=== PATIENT | male | born 1950 ===

== ENCOUNTER 2017-02-01 11:04 | Emergency (ER) | payer MEDICARE ==
[2017-02-01 11:18] VITALS: TEMP 98
--- NOTE | 2017-02-01 11:22 | C.PDOC ---
History Of Present Illness <Idalia Talbot - Last Filed: 02/01/17 11:36> <Michelle Perdue - Last Filed: 02/01/17 13:04> 66 year old male with PMHx of HTN and shingles presents with complaint of worsening shingle pain. Shingles outbreak started on December 20 on his left chest. He was treated with Acyclovir, Percocet, and Gabapentin. The patient was unable to tolerate the Gabapentin because it caused vomiting. He states that he is only taking Tylenol 2 tabs q4h for the pain but that it is not helping. Pain became worse last night and kept him up all night. Denies new vesicles. All other ROS negative at this time. (IronMichelle) <Idalia Talbot - Last Filed: 02/01/17 11:36> History Per: Patient History/Exam Limitations: no limitations Onset/Duration Of Symptoms: Days Current Symptoms Are (Timing): Still Present Quality Of Symptoms: Painful Severity: Severe Pain Scale Rating Of: 10 Recent travel outside of the [place]: Yes ([place]) Additional History Per: Patient <Michelle Perdue - Last Filed: 02/01/17 13:04> Time Seen by Provider: 02/01/17 11:10 Chief Complaint (Nursing): Abnormal Skin Integrity Past Medical History - Medical History PMH: HTN Other PMH: shingles Surgical History: Appendectomy, Cholecystectomy Family History: States: Unknown Family Hx - Social History Hx Tobacco Use: No Hx Alcohol Use: Yes Hx Substance Use: No - Immunization History Hx Tetanus Toxoid Vaccination: No Hx Influenza Vaccination: No Hx Pneumococcal Vaccination: No <Michelle Perdue - Last Filed: 02/01/17 13:04> Vital Signs: Last Vital Signs Temp 98.0 F 02/01/17 11:15 Pulse 75 02/01/17 12:13 Resp 18 02/01/17 12:13 BP 128/92 H 02/01/17 12:13 Pulse Ox 98 02/01/17 12:13 Review Of Systems Except As Marked, All Systems Reviewed And Found Negative. Skin: Positive for: Rash, Other (healing shingles, chronic skin discoloration and changes ) <Terry Perdueiba - Last Filed: 02/01/17 13:04> Physical Exam - Physical Exam Appears: Well, Non-toxic Skin: Rash (left chest healed shingles, mottled purple, painful with light touch ) <IronMichelle - Last Filed: 02/01/17 13:04> ED Course And Treatment O2 Sat by Pulse Oximetry: 97 <Michelle Perdue - Last Filed: 02/01/17 13:04> Supervising Attending Note - Supervising Attending Note Comment: RESIDENT - Attestation: I have personally seen and examined this patient.: Yes I have fully participated in the care of the patient.: Yes I have reviewed all pertinent clinical information, including history, physical exam and plan: Yes <Idalia Talbot - Last Filed: 02/01/17 11:36> <IronMichelle - Last Filed: 02/01/17 13:04> - Notes: Notes:: PERSIST PAIN OVER SHINGLES SITE X 1 MO. RELIEF W PERCOCET AND TYLENOL BUT PAIN RECURS. RASH HEALING WELL, NO OTHER ASSOC SX. EXAM ABOVE LIDODERM PATCH, CONT CURRENT MEDS NEEDED (Idalia Talbot) Disposition Counseled Patient/Family Regarding: Diagnosis, Need For Followup - Disposition Disposition Time: 11:37 <Idalia Talbot - Last Filed: 02/01/17 11:36> Discussed With .: Idalia Talbot Counseled Patient/Family Regarding: Diagnosis, Need For Followup, Rx Given - Disposition Disposition Time: 11:33 <IronMichelle - Last Filed: 02/01/17 13:04> - Disposition Referrals: [facility] [Outside] [facility] [Outside] Disposition: HOME/ ROUTINE Condition: IMPROVED Additional Instructions: Patient may continue to take Tylenol every 4 hours prn pain. He was instructed to apply lidoderm patch to affected area as prescribed. The patient should follow up with his PMD within 7 days. Instructions explained to the patient who understands. Prescriptions: Lidocaine 5% [Lidoderm] 1 ea TD DAILY #6 patch Instructions: Shingles (DC) - Clinical Impression Clinical Impression: Postherpetic neuralgia
[2017-02-01] MEDS ORDERED: Lidocaine 5% Patch TD SCH (11:30)
[2017-02-01] MEDS ORDERED: Lidocaine 5% Patch TD STA (11:53)
[2017-02-01 12:14] VITALS: BP 128/92; PULSE 75; RESP 18
[2017-02-01 13:05] VITALS: O2SAT 97
== END 2017-02-01 12:13 | disposition home or self-care (01) ==
LOC: C.ER 11:04
DX: B02.29 Other postherpetic nervous system involvement (principal)

== ENCOUNTER 2019-01-16 09:40 | Outpatient (CLI) | payer OTHER | END 2019-01-16 09:41 | disposition home or self-care (01) | LOC: C.LAB 09:40 ==

== ENCOUNTER 2019-01-22 11:56 | Outpatient (CLI) | payer OTHER | END 2019-01-22 11:57 | disposition home or self-care (01) | LOC: C.LAB 11:56 | DX: E78.5 Hyperlipidemia, unspecified (principal) ==

== ENCOUNTER 2019-02-20 16:16 | Emergency (ER) | payer OTHER ==
[2019-02-20 16:30] VITALS: BP 154/85; PULSE 73; RESP 16; TEMP 98.4; O2SAT 97
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
== END 2019-02-20 17:45 | disposition home or self-care (01) ==
LOC: C.ER 16:16
DX: T14.8XXA Other injury of unspecified body region, initial encounter (principal); V49.50XA Passenger injured in collision with unspecified motor vehicles in traffic accident, initial encounter